=== PATIENT | male | born 1995 | race Caucasian/White ===

== ENCOUNTER 2021-02-11 23:09 | Emergency (ER) | payer BC ==
[~2021-02-11] VITALS: Ht 170.2 cm; Wt 108.4 kg
[2021-02-12 01:03] VITALS: BP 165/99
== END 2021-02-12 01:19 | disposition home or self-care (01) ==
LOC: ER 23:09
DX: U07.1 COVID-19 (principal); J45.909 Unspecified asthma, uncomplicated; F12.90 Cannabis use, unspecified, uncomplicated; Z98.890 Other specified postprocedural states